=== PATIENT | female | born 2000 | race Caucasian/White ===

== ENCOUNTER 2024-11-12 01:31 | Emergency (ER) | payer OTHER, SELFPAY ==
[2024-11-12 01:40] VITALS: BP 102/73
[2024-11-12 02:53] VITALS: BP 113/66; BMI 24.5
--- NOTE | 2024-11-12 03:19 | ED.GENMED ---
History of Present Illness
General
Chief Complaint: Head Injury
Source: patient
Exam Limitations: none
Time Seen by Provider: 11/12/24 03:10
Nursing documentation reviewed up to this point in time: agreed with
History of Present Illness
History of Present Illness:
This is a 24-year-old female with history of anxiety presents with complaints of left posterior headache that began this evening. Patient states while she was shutting her car door behind her the door inadvertently struck the left posterior aspect
of her head. She denies fall, denies loss of consciousness. Incident occurred at 7 PM and initially had no pain but while attempting to go to bed, lying back on the pillow she noticed pain left posterior occiput region and she admits that she
began to get worried that she had bleeding in her brain. She denies nausea nor vomiting, denies neck nor back pain, denies dizziness nor lightheadedness but admits with increased worries she began to feel somewhat dazed and felt that she was 'out
of it'
Since arrival to the ED she is feeling markedly improved.
She has not taken anything for her headache. She takes no anticoagulants.
Past History
Past History
ED Past Medical History: Psychiatric (Anxiety)
ED Past Surgical History: None
Social History
Tobacco: Non-smoker
Personal: Single
Living: with family
Employment: Student
Family History
Family History: Other (Noncontributory)
Phy Exam
Physical Exam
Physical Exam:
TRAUMA EXAM:
VITAL SIGNS: Vital signs reviewed, cooperative
DISTRESS: No active disease. 24-year-old female appears her stated age, bright and alert, pleasant, appears in no acute distress.
EYES: Pupils reactive, no orbital trauma. Discs are sharp bilaterally. Extraocular muscles intact.
NOSE: No deformity or epistaxis
FACE AND SCALP: No facial trauma, there is a small soft tissue contusion left lateral occiput with mild local tenderness to palpation. No palpable bony abnormality, no hematoma. External canals no blood
NECK: Supple nontender, full range of motion without difficulty nor pain.
BACK: Back nontender, pelvis stable to compression
RESPIRATORY: No distress, breath sounds normal, no tender chest wall
CARDIAC: No murmur, pulses equal and strong
ABDOMEN: Soft nontender bowel sounds normal
SKIN: Skin intact no bleeding, color normal
EXTREMITIES: Nontender
NEUROLOGICAL: Alert, oriented, no motor deficits
PSYCH: Mood affect normal
Course
Vital Signs
Initial and Last Documented VS:
Initial Vital Signs
Temp Pulse Resp BP Pulse Ox
97.7 F 66 20 102/73 100
11/12/24 01:40 11/12/24 01:40 11/12/24 01:40 11/12/24 01:40 11/12/24 01:40
Last Documented Vital Signs
Temp Pulse Resp BP Pulse Ox
97.7 F 73 16 113/66 99
11/12/24 01:40 11/12/24 02:53 11/12/24 02:53 11/12/24 02:53 11/12/24 02:53
MDM/Problems Addressed
Differential Diagnosis Includes:
History and exam consistent with minor closed head injury. Mechanism of injury is not concerning for significant head injury and exam notes very small scalp contusion left occipital region.
Overall well in appearance, no focal neurodeficits, takes no anticoagulants. No indication for CT of the head.
Recommend supportive measures and I have offered a dose of ibuprofen which she declines and instead will take once she returns home.
Follow-up with PCP for recheck as needed.
Return precautions discussed.
Chronic conditions affecting care: Psychiatric illness
*Pulse Oximetry
Patient hypoxic: no
*Critical Care Note
Total Time (30-74mins, 75-104mins- exclusive of procedures): Not Applicable
ED Attending Note
-
Portions of this chart may have been created with voice recognition software.� Occasional wrong word or��sound alike� substitutions may have occurred due to the inherent limitations of voice recognition software.
Discharge Plan
Departure
Patient Disposition: Home (Routine Discharge)
Date of Disposition: 11/12/24
Time of Disposition: :
Patient with high blood pressure during this ER visit?: No
Discharge Problem:
Minor head injury without loss of consciousness
Instructions: Minor Head Injury (DC)
Referrals:
Richard Colbert MD [Family Provider] - As needed
Interventions
Interventions:
*Risk Screen - Suicide Last Done: 11/12/24 01:40
*General Assessment Last Done: 11/12/24 01:40
*Neglect/Abuse Screening Last Done: 11/12/24 01:40
*ED- Fall Risk Assessment Last Done: 11/12/24 01:40
*ED COVID-19 Vaccine History Last Done: 11/12/24 01:40
ED- Neurological Assessment Last Done: 11/12/24 02:53
ED-Skin Assessment Last Done: 11/12/24 02:53
Discharge Date and Time
Print Language: SWEDISH
== END 2024-11-12 03:54 | disposition home or self-care (01) ==
LOC: EMR 01:31
PROVIDERS: EMERGENCY PHYSICIAN Emergency Medicine; FAMILY PHYSICIAN Internal Medicine
DX: S09.90XA Unspecified injury of head, initial encounter (principal); S00.83XA Contusion of other part of head, initial encounter; R41.0 Disorientation, unspecified; R51.9 Headache, unspecified; W22.09XA Striking against other stationary object, initial encounter; V48.4XXA Person boarding or alighting a car injured in noncollision transport accident, initial encounter; F41.9 Anxiety disorder, unspecified
CPT/HCPCS: 99282

== ENCOUNTER 2025-02-21 05:06 | Emergency (ER) | payer OTHER, SELFPAY ==
[2025-02-21 05:13] VITALS: BP 94/76
[2025-02-21 05:25] VITALS: BMI 24.6
[2025-02-21 05:28] VITALS: BP 102/62
--- NOTE | 2025-02-21 05:33 | EDRN ---
Patient stated that she developed SOB yesterday. Patient stated that she went to urgent care and only had her O2 level checked which was 99%. Patient stated that she stopped vaping yesterday once she developed the SOB. Patient stated that she has
been vaping since she was 17. Patient stated that her chest feels tight.
[2025-02-21 06:00] VITALS: BP 94/48
--- NOTE | 2025-02-21 06:39 | ED.GENMED ---
History of Present Illness
General
Chief Complaint: Breathing Problem
Source: patient
Exam Limitations: none
Time Seen by Provider: 02/21/25 06:09
Nursing documentation reviewed up to this point in time: agreed with
History of Present Illness
History of Present Illness:
24-year-old female limited past medical history she has been vaping daily for 7 years, presents with cough wheezing, mild sore throat no calf pain not on control pills, no fever no hemoptysis, no abdominal pain no history of asthma no sick
contacts
Past History
Past History
ED Past Medical History: None and Psychiatric (Anxiety)
ED Past Surgical History: None
Social History
Tobacco: Vaping
Alcohol: None
Drug: None
Personal: Single
Living: with family
Employment: Employed
Family History
Family History: Other (Noncontributory)
Review of Systems
Review of Systems
All Other Systems: Not applicable
EENT: Reports sore throat
Respiratory: Reports cough and trouble breathing; Denies hemoptysis
Cardiac: Reports no symptoms; Denies chest pain or palpitations
ABD/GI: Reports no symptoms
Phy Exam
Physical Exam
Physical Exam:
Physical Exam
General: no apparent distress, not acutely ill
Neck: Posterior pharynx is clear no trismus
Heart: Regular
Lungs: Faint expiratory wheeze
Abdomen: Nontender
Neuro: alert and oriented. no focal neurological deficits
Skin: no rash
Psychiatric: well kept. interactive and cooperative
Extremities: no edema. no calf tenderness.
Course
Orders/Labs/Results
Orders:
Orders
02/21/25 05:20
CXR2 [CR Chest - 2 Views ] Urgent
Comment:
Reason For Exam: SOB
02/21/25 06:31
Ipratropium/Albuterol Sulfate [Duoneb] 3 ml INH R NOW STA
Vital Signs
Initial and Last Documented VS:
Initial Vital Signs
Temp Pulse Resp BP Pulse Ox
98.1 F 58 18 94/76 100
02/21/25 05:13 02/21/25 05:13 02/21/25 05:13 02/21/25 05:13 02/21/25 05:13
Last Documented Vital Signs
Temp Pulse Resp BP Pulse Ox
98.1 F 63 22 94/48 99
02/21/25 05:13 02/21/25 06:00 02/21/25 06:00 02/21/25 06:00 02/21/25 06:00
MDM/Problems Addressed
Differential Diagnosis Includes:
URI, pneumonia pneumothorax heart failure doubt PE-pulse ox 100%, no calf pain, no contraceptives, heart rate 62 respiratory rate 12
MDM/Problems Addressed:
Cough wheeze
Chronic conditions affecting care:
Vape use
Acute Exacerbation and/or Progression of Chronic Illness:
Vape
*Radiology
Radiology exam reviewed: radiology read reviewed
*Pulse Oximetry
SaO2: 100
Oxygen Mode of Delivery: Room air
Patient hypoxic: no
*Technical Solutions Engineer Interpretation
Rate: normal
Interpretation: normal
Heart Rate: 60
Rhythm: sinus
*Critical Care Note
Total Time (30-74mins, 75-104mins- exclusive of procedures): Not Applicable
Update Note
Update Note:
Update suspect URI due to viral syndrome concomitant vaping will try albuterol patient is hesitant to take any p.o. meds
ED Attending Note
-
Portions of this chart may have been created with voice recognition software.� Occasional wrong word or��sound alike� substitutions may have occurred due to the inherent limitations of voice recognition software.
Discharge Plan
Departure
Referrals:
Pily Vincent CRNP [Family Provider]
Interventions
Interventions:
*Risk Screen - Suicide Last Done: 02/21/25 05:13
*General Assessment Last Done: 02/21/25 05:25
*Neglect/Abuse Screening Last Done: 02/21/25 05:13
*ED- Fall Risk Assessment Last Done: 02/21/25 05:25
*ED COVID-19 Vaccine History Last Done: 02/21/25 05:25
ED- Cardiac Assessment Last Done: 02/21/25 05:25
ED- Pulmonary Assessment Last Done: 02/21/25 05:25
Discharge Date and Time
Print Language: [id number]
--- NOTE | 2025-02-21 07:10 | EDRN ---
Reviewed discharge instructions with patient. Verbalized understanding. Ambulated with steady gait to the lobby.
[2025-02-21 07:18] VITALS: BP 94/48
[2025-02-21 07:19] VITALS: BP 101/62
== END 2025-02-21 07:10 | disposition home or self-care (01) ==
LOC: EMR 05:06
PROVIDERS: EMERGENCY PHYSICIAN Emergency Medicine; FAMILY PHYSICIAN Nurse Practitioner Family
DX: R05.9 Cough, unspecified (principal); R06.2 Wheezing; R06.02 Shortness of breath; J02.9 Acute pharyngitis, unspecified; F41.9 Anxiety disorder, unspecified; F17.290 Nicotine dependence, other tobacco product, uncomplicated; Z86.16 Personal history of COVID-19
CPT/HCPCS: 99283; 71046